=== PATIENT | male | born 1945 | race Caucasian/White ===

== ENCOUNTER 2024-01-23 05:58 | Day surgery (SDC) | payer MEDICARE, SELFPAY ==
[2024-01-16 10:54] VITALS: BMI 27.7
[2024-01-22 10:32] LABS: Blood Urea Nitrogen 18 mg/dl (9-20); Estimated Creatinine Clearance 43 ml/min
[2024-01-23] VITALS (13 sets, daily range): BP systolic 102–141; BP diastolic 62–90; BMI 28.6
[2024-01-23] MEDS: NSS 500 IV (06:45)
--- NOTE | 2024-01-23 06:56 | PTCARENOTE ---
Pt here for BI V pacemaker generator change. Pt's pulse ox is 87-95% on room air. Pt states his oxygen level flucuates like this at home. Pt denies SOB. Pt's lungs with fine bibasilar rales but otherwise clear. Dr Laird made aware. No further
treatment ordered at this time. Will continue to monitor.
[2024-01-23 06:59] LABS: Glucose - Point of Care 106 mg/dl (70-99)
--- NOTE | 2024-01-23 07:09 | PTCARENOTE ---
[employer] device rep at pt bedside interrogating pt's device.
[2024-01-23] MEDS: VANCOCIN 300 MG IV (07:16)
[2024-01-23] MEDS: VANCOCIN 300 ML IV (07:16)
--- NOTE | 2024-01-23 09:07 | ITS.CL.PACE ---
Surveillance Inspector - Pacemaker Implant
Pacemaker Implant
Procedure Report:
PACEMAKER GENERATOR CHANGE
Date of Procedure: January 23, 2024
Primary Electronic Plotting System Operator: Dr. Bud Mustafa
PROCEDURES:
1. Removal of biventricular PPM generator at [facility]
2. Implant of new biventricular chamber PPM generator
INDICATION FOR PROCEDURE:
1. PM generator at [facility]
HISTORY:
78-year-old male with CHF and biventricular pacemaker who presents with generator at [facility] for generator change
'Time out' called and confirmed
Antibiotic: Vancomycin
Sedation/anesthesia: Conscious
EXPLANTED PPM GENERATOR: [employer] model U128 serial #[id number] implanted 2014
IMPLANTED PPM GENERATOR: [employer] model U128 serial #[id number] implanted left subcutaneous
Existing RA lead: [employer] 4076 serial number [id number] implanted 2014
Existing RVLead: [employer] 5076 serial number [id number] implanted 2014
Existing LV lead: [employer]onic 4398 serial number [id number] implanted 2014
DEVICE TESTING:
Sensing: RA Afib mV, RV Paced mV LV Paced No underlying rhythm and occasional escape after 4-5 seconds
Capture: RA A-fib, RV 0.7 V@0.5ms LV 0.6 V @ 0.5ms
Ohms: RA 375 ohms , RV 454 ohms LV 812 ohms
FINAL PROGRAMMING
[place] Pacing:DDDR 60 - 130 ppm
COMPLICATIONS:
None
CONCLUSIONS:
1. Successful explant of biventricular chamber permanent pacemaker
2. Successful implant of biventricular chamber permanent pacemaker
RECOMMENDATIONS:
1. Routine post-op care and prophylactic antibiotics
2. In-Office wound check in 5-10 days.
3. Office interrogation in 6-8 weeks
Copy to: Dr. Reji Mustafa
[2024-01-23 09:40] LABS: Glucose - Point of Care 128 mg/dl (70-99)
--- NOTE | 2024-01-23 09:45 | PTCARENOTE ---
Received pt from BI V pacemaker generator change. Pt's lungs with rales 1/3 up bilaterally. Pt arrived on 4L NC and sat between 89 and 91. Pt denies SOB at this time. Kacy Gee NP made aware of pt's lung status and pulse ox. Pt instructed to take
80mg lasix when he gets home today and wear his home oxygen today as ordered. Will continue to monitor.
--- NOTE | 2024-01-23 10:30 | PTCARENOTE ---
Pt ambulated around recovery room without difficulty. Pt denies SOB. No respiratory distress noted. Pulse ox in the 70's upon arrival to pt's recovery room bed. Pt continues to deny SOB. Pt placed back on 2L NC. Kacy Gee NP made aware and ordered
lasix IV. Will continue to monitor. Pt's at pt bedside.
[2024-01-23] MEDS: LASIX 40 MG IV (10:42)
--- NOTE | 2024-01-23 10:43 | PTCARENOTE ---
Kacy Gee EMT INTERMEDIATE at pt bedside assessing pt and speaking to pt and pt's .
--- NOTE | 2024-01-23 11:07 | W.PN.UPDATE ---
Update Note
Progress Note Update
CTSP post procedure sats in low 80's occasionally dipping to mid 70's after ambulation most likely from anestheisa during generator change. His pre procedure sats 88%. He was d/c with home O2 in September but did not bring portable tank as he rarely
wears O2 at home. He has never seen Pulmonary in the past.
He was given Lasix 40 iv for his bibasilar rales and we will increase his lasix to 80mg daily at home. He was instructed to wear O2 continuously at home.
I made an appt with Dr. Montgomery ([facility]) for next 01/27 9am for further evaluation. He will be d/c home in the next hour.
Dr. Mustafa aware and agrees with plan.
--- NOTE | 2024-01-23 11:12 | CM ---
called to [facility] to speak to pt about portable o2 tank. confirmed with health care soln's that pt has portable o2 at home , did not bring it with him. states he hasnt used it. he refused to have family bring in the tank or send home to get it.
== END 2024-01-23 12:00 | disposition home or self-care (01) ==
LOC: CATH 05:58
PROVIDERS: ATTENDING PHYSICIAN Internal Medicine Cardiovascular Disease; FAMILY PHYSICIAN Family Medicine; REFERRING PHYSICIAN Physician Assistant
DX: Z45.010 Encounter for checking and testing of cardiac pacemaker pulse generator [battery] (principal); I11.0 Hypertensive heart disease with heart failure; I25.5 Ischemic cardiomyopathy; I50.32 Chronic diastolic (congestive) heart failure; I48.91 Unspecified atrial fibrillation; E78.5 Hyperlipidemia, unspecified; I25.10 Atherosclerotic heart disease of native coronary artery without angina pectoris; Z95.1 Presence of aortocoronary bypass graft; I07.1 Rheumatic tricuspid insufficiency; G47.33 Obstructive sleep apnea (adult) (pediatric); J96.10 Chronic respiratory failure, unspecified whether with hypoxia or hypercapnia; Z99.81 Dependence on supplemental oxygen; Z79.84 Long term (current) use of oral hypoglycemic drugs; E11.9 Type 2 diabetes mellitus without complications; N28.9 Disorder of kidney and ureter, unspecified; Z86.010 Personal history of colon polyps; K64.9 Unspecified hemorrhoids; Z79.01 Long term (current) use of anticoagulants; N20.0 Calculus of kidney; R42 Dizziness and giddiness; G25.0 Essential tremor; G62.9 Polyneuropathy, unspecified; M19.90 Unspecified osteoarthritis, unspecified site; Z85.828 Personal history of other malignant neoplasm of skin; D64.9 Anemia, unspecified; Z87.891 Personal history of nicotine dependence
CPT/HCPCS: 33229; 33264; 36415; 82565; 82962; 84520; 86850; 86900; 86901; C2621

== ENCOUNTER → 2024-04-19 14:25 | Outpatient (REF) | payer MEDICARE, SELFPAY | LOC: RAD 14:25 | PROVIDERS: ATTENDING PHYSICIAN Internal Medicine Critical Care Medicine; FAMILY PHYSICIAN Family Medicine | DX: R06.09 Other forms of dyspnea (principal) | CPT/HCPCS: 71046 ==

== ENCOUNTER → 2024-10-29 08:12 | Outpatient (REF) | payer MEDICARE, SELFPAY ==
[2024-10-29 10:05] LABS: Blood Urea Nitrogen 21 mg/dl (9-20); Carbon Dioxide 31 mmol/L (22-30); Chloride 99 mmol/L (98-107); Glucose 118 mg/dl (70-99); Potassium 4.3 mmol/L (3.5-5.1); Sodium 140 mmol/L (135-145); eGFR 55.53
== END ==
LOC: RCS 08:12
PROVIDERS: ATTENDING PHYSICIAN Nurse Practitioner; FAMILY PHYSICIAN Family Medicine
DX: I48.91 Unspecified atrial fibrillation (principal); R06.09 Other forms of dyspnea
CPT/HCPCS: 36415; 80048; 93306